=== PATIENT | male | born 1930 | race Caucasian/White ===

== ENCOUNTER 2016-11-12 01:34 | Day surgery (SDC) | payer MEDICARE ==
[~2016-11-12] VITALS: Ht 190.5 cm; Wt 108.9 kg
[~2016-11-12 01:34] MED LIST: BISA-67 PO; CARV12.52 PO; FURO-129 PO; LISI-571 PO; WARF5TAB7 PO
[2016-11-12] MEDS ORDERED: Propofol 10,000 mCg/mL 20 mL Inj ONE (01:35)
[2016-11-12] MEDS ORDERED: Ketamine 10 mg/mL 20 mL Inj ONE (01:35)
[2016-11-12] MEDS ORDERED: Lactated Ringer's 1,000 ML IV ONE (06:00)
[2016-11-12 11:45] VITALS: BP 140/85; PULSE 70; RESP 14; O2SAT 99
--- NOTE | 2016-11-12 12:16 | PCM.HPANE ---
Patient Data Date of Service: November 12, 2016 Surgeon Admitting Provider: Attending Provider:Rohan Russo MD Primary Care Physician:Marisol Millan PA-C Other Provider:Farshad Montelongo Anesthesia Reason for Visit Screening Ht/WT & BMI Height (Feet): 6 Height (Inches): 3 Weight (Kilograms): 108.86 Body Mass Index 29.00 Allergies Coded Allergies: oxycodone (Verified Adverse Reaction, Intermediate, WEIGHT LOSS, 11/11/16) Past Anesthesia History Anesthesia History: Denies:: Abnormal Airway, Anesthesia Reactions, Difficult Intubation, Fam Anesthesia Reaction, Fam Malignant Hypertherm, Malignant Hyperthermia Diabetes History Hx Diabetes?: No MRSA MRSA: No Medications Blood Thinner: Coumadin Last Dose Blood Thinner: Nov 06, 2016 Home Meds Incl Beta Jayant: Yes Date Beta Jayant Taken: November 11, 2016 Time Beta Jayant Taken: 1999 Reported Medications Warfarin Sodium 5 Mg Tablet5 Mg PO DAILY 30 Days Ref 0 11/11/16 Lisinopril 5 Mg Tablet5 Mg PO DAILY #30 TABLET Ref 0 11/11/16 Furosemide (Lasix)20 Mg [id number] Mg PO DAILY 30 Days Ref 0 11/11/16 Bisacodyl (Dulcolax)5 Mg Tablet.dr10 Mg PO DAILY PRN For Constipation Ref 0 11/11/16 Carvedilol 12.5 Mg Igfmek32.5 Mg PO BID Ref 0 11/11/16 History History of ENT Problems?: No HEENT History: Positive for:: Hearing Problem Denies:: Abnormal Airway Difficult Intubation Dysphagia Denture Type: None Teeth Condition: Within Normal Limits Other HEENT Pertinent History: 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 Hx of Heart Problems?: Yes Cardiovascular History: Positive for:: Atrial Fibrillation Hypertension Pacemaker (AICD) Valvular Heart Disease Denies:: AICD Hx of Respiratory Problem?: Yes Respiratory History: Positive for:: Pneumonia Denies:: Asthma COPD Cough Hemoptysis Tuberculosis Hx Neurologic Problems?: No Neurological History: Denies:: CVA Hx of GI Problems?: Yes Hx of Problems?: No Hx Musculoskeletal Problems?: Yes Musculoskeletal History: Positive for:: Joint Replacement (BILAT KNEE) Denies:: Fibromyalgia Psycho Social History: Denies:: Anxiety Hx Depression Hx Surgeries?: Yes (CARDIAC VALVE X2, L TKA X2, R TKA X1, TONSIL, LAP CAMPOS, ABD HERNIA) Hx Any Other Health Problems?: Yes Hx Diabetes: No Hx Alcohol Use: No Stop/Bang Treated for Sleep Apnea?: Yes Do You Have a CPAP Machine?: Yes (NON-COMPLIANT WITH NIGHTLY USE) SHAYY Risk Assessment: High Risk, =/>3 Yes SHAYY Category 4 OutPt Procedure: Yes Risk Assessment Category Category 1A: Patient has history of documented sleep apnea, and HAS NOT received any narcotic, sedative or anesthesia administration during this stay. Category 1B: Patient has history of documented sleep apnea, and HAS received any narcotic , sedative or anesthesia administration during this stay Category 2: Patient has SUSPECTED Obstructive Sleep Apnea, and HAS received any narcotic , sedative or anesthesia administration during this stay. Category 3: Patient has SUSPECTED Obstructive Sleep Apnea and HAS NOT received narcotic, sedative or anesthesia administration during this stay. Category 4: Outpatient in Procedural Areas with known sleep apnea or who screen positive for High Risk via the STOP/BANG questionnaire. Exam Exam Vital Signs Vital Signs Date Time Temp Pulse Resp B/P Pulse Ox O2 Delivery O2 Flow Rate FiO2 11/12/16 11:45 70 14 140/85 99 Room Air General Appearance: Alert, Oriented X3, Cooperative, No Acute Distress HEENT/AIRWAY: MP 1 Lungs: Clear to Auscultation, Normal Air Movement Heart: Exam Unremarkable, Regular Rate/Rhythm, No Murmurs/Rubs/Gallops Plan Impression Patient chart reviewed, patient interviewed and anesthestic plan with risks, benefits, and alternatives discussed, and informed consent obtained. NPO per Anesth. Guidelines: Yes ASA Physical Status: ASA3 Severe Disease Anesthetic Plan: MAC Bene/Risks/Altern/Consents: Yes HP Complete Prior to Induction: Yes Francisco Perry MD November 12, 2016 12:16
[2016-11-12] MEDS ORDERED: Lactated Ringer's 500 ML IV PRN (13:12)
[2016-11-12] MEDS ORDERED: Lactated Ringer's 1,000 ML IV SCH (13:12)
[2016-11-12 13:13] VITALS: BP 116/56; PULSE 68; RESP 16; O2SAT 91
--- NOTE | 2016-11-12 13:13 | PCM.ANEP1 ---
Post Anesthesia Phase 1 PACU Phase 1 Assessment Date of Service: November 12, 2016 Vital Signs 116/56 69 12 98% ra Anesthetic Administered: MAC Level of Alertness: Awake, talking ROJO's with Equal Strength: Yes Pain: No Nausea or Vomiting: No Cardiovascular Function and Hy: Yes Oxygen Delivery: Room Air Lungs: Clear to Auscultation, Normal Air Movement Complications: No Follow up Care: No Patient Instructions Provided: Yes Francisco Perry MD November 12, 2016 13:13
[2016-11-12] MEDS ORDERED: MetoCLOpramide 5 mg/mL 2 mL Inj IVPUSH PRN (13:15)
[2016-11-12] MEDS ORDERED: Ondansetron 2 mg/mL 2 mL Inj IVPUSH PRN (13:15)
[2016-11-12] MEDS ORDERED: Atropine 0.4 mg/mL Inj IVPUSH PRN (13:15)
[2016-11-12 13:23] VITALS: BP 120/69; PULSE 72; RESP 16; O2SAT 99
--- NOTE | 2016-11-12 21:27 | ENDO ---
[address] [address] ENDOSCOPY PROCEDURE PATIENT: LYUDMILA HERRERA : 1930 MR#: [id number] ADMIT: 11/12/2016 JOB ID: [id number] PROCEDURE: Colonoscopy. INDICATIONS: Screening. The patient's ASA classification, Mallampati score, and medications are as per the anesthesia note. INSTRUMENT USED: PCF H 190 L. PREPARATION QUALITY: Fair. PROCEDURE DETAILS: After informed consent was obtained, the patient was brought into the GI suite, where he was placed on oxygen via nasal cannula and monitored with continuous pulse oximeter, telemetry, and blood pressure monitoring. A time-out was performed, then he was placed in a left lateral decubitus position and medications were administered for sedation. Digital rectal exam was performed which was unremarkable. The colonoscope was then inserted into the rectum and advanced under direct visualization to the cecum, which was identified by the presence of the ileocecal valve and appendiceal orifice. Once the cecum was reached, the colonoscope was withdrawn back into the rectum and mucosa and lumen were examined. In the rectum, retroflexion was performed. Following retroflexion, the remaining air in the rectum was suctioned, and the procedure was completed. FINDINGS: 1. 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 2. Otherwise normal exam from rectum to cecum. IMPRESSION: Melanosis coli. RECOMMENDATIONS: Repeat colonoscopy as needed. COMPLICATIONS: None. ESTIMATED BLOOD LOSS: 0.
== END 2016-11-12 23:59 | disposition home or self-care (01) ==
LOC: END 01:34
PROVIDERS: ATTEND Internal Medicine Gastroenterology
DX: Z12.11 Encounter for screening for malignant neoplasm of colon (principal); K63.89 Other specified diseases of intestine; I10 Essential (primary) hypertension; I48.91 Unspecified atrial fibrillation; I38 Endocarditis, valve unspecified; Z95.0 Presence of cardiac pacemaker; Z79.01 Long term (current) use of anticoagulants; Z96.653 Presence of artificial knee joint, bilateral
CPT/HCPCS: G0121; J7120

== ENCOUNTER 2016-12-30 10:10 | Emergency (ER) | payer MEDICARE ==
[~2016-12-30] VITALS: Ht 190.5 cm; Wt 109.1 kg
[2016-12-30 10:22] VITALS: BP 118/63; PULSE 71; RESP 15; O2SAT 96
--- NOTE | 2016-12-30 10:22 | ED.REPORT ---
HPI-Abd Pain M 40 and Over Date of Service Dec 30, 2016 ED Provider: Davis Donato MD 86 y/o male on Coumadin with a hx of A-fib (with pacemaker) and HTN presents to the ED via EMS complaining of hematemesis onset a few hours ago. The pt states he has had a sinus infection for over a month for which he is on antibiotics. He was experiencing severe sinus pain last night so he took 2 Tylenol and his son's "Suboxone". The pt then went to sleep but woke up to nausea, weakness and visual hallucinations. He denies chest pain, cough, diarrhea, melena, hematochezia and abdominal pain. The pt states he felt "kind of woozy and weak" and could not walk so he called the EMS. His sx have resolved in the ED. Nursing Notes Stated Complaint: BLOODY EMESIS Chief Complaint: General Complaint Nursing Notes Reviewed: Yes Allergies: Coded Allergies: oxycodone (Verified Adverse Reaction, Intermediate, WEIGHT LOSS, 11/11/16) Scheduled Carvedilol (Carvedilol) 12.5 Mg Tablet 12.5 MG PO BID Furosemide (Lasix) 20 Mg Tablet 20 MG PO DAILY Lisinopril (Lisinopril) 5 Mg Tablet 5 MG PO DAILY Warfarin Sodium (Warfarin Sodium) 5 Mg Tablet 5 MG PO DAILY Scheduled PRN Bisacodyl (Dulcolax) 5 Mg Tablet.dr 10 MG PO DAILY PRN PRN For Constipation Ondansetron ODT (Zofran ODT) 4 Mg Tablet 4 MG PO Q4H PRN PRN For Nausea General Time Seen by MD: 10:21 Chief Complaint Other (hematemesis) Hx Obtained From: Patient Arrived By: Ambulance Sudden in Onset?: Yes Onset Occurred: 1 - 4 hours ago Symptom Duration: 1 - 4 hours Progression since Onset: Resolved Severity: Current: No pain currently Severity: Maximum: No pain Recent Healthcare: No recent doctor visit Similar Sx Previous: No Past Medical History Past Medical History Valvular heat disease. Reports: Hypertension Reports: Atrial fibrillation Past Surgical History Cardiac valce x2 L TKA x2 R TKA x1 Abd hernia Reports: Cholecystectomy, Tonsillectomy Smoking History Unknown if Ever Smoker Social History Other Social History: Good social support, Ambulatory Status Independent Review of Systems Constitutional: Reports: Weakness - generalized Respiratory: Denies: Non-productive cough Cardiovascular: Denies: Chest pain GI: Reports: Nausea, Vomiting (with blood), Denies: Abdominal pain, Diarrhea, Hematochezia, Melena Complete sys rev & neg: except as marked. Psychiatric: Reports: Hallucinations, visual Physical Exam Initial Vital Signs Vital Signs (First) Date Time Temp Pulse Resp B/P Pulse Ox O2 Delivery O2 Flow Rate FiO2 12/30/16 10:22 36.4 71 15 118/63 96 Room Air Initial VS: Reviewed Neck: Supple, Non-tender, Full range of motion Extremities: Vascular intact, Neuro intact, No swelling, No tenderness Skin: Warm, Dry, No cyanosis Neurologic: Alert, Oriented, Nonfocal General/Constitutional: Awake, Alert, No acute distress, Cooperative Respiratory / Chest: Atraumatic, Breath sounds NL, Breath sounds = bilat, No respiratory distress, No rales, No rhonchi, No wheezing Cardiovascular: Heart rate NL, Regular rhythm, Heart sounds NL, No gallop, No murmurs, No rubs Abdomen: Atraumatic, Soft, Non-tender, No guarding, No rebound Back: Atraumatic, Full range of motion, Painless range of motion, Non-tender Head / Eyes: Atraumatic, Normocephalic No sinus tenderness Rectum / Perineum: Atraumatic, No gross blood Guaiac negative Interpretation & Diagnostics Lab Results Interpretation Result Diagram: 12/30/16 1050 12/30/16 1050 Test 12/30/16 10:50 12/30/16 13:08 White Blood Count 6.0th/mm3 (3.8-10.1) Red Blood Count 4.98mil/mm3 (4.40-5.80) Hemoglobin 14.5g/dL (13.8-17.2) Hematocrit 44.9% (41.0-50.0) Mean Corpuscular Volume 90.2fL (81-100) Mean Corpuscular Hemoglobin 29.1pg (27.0-35.0) Mean Corpuscular Hemoglobin Concent 32.3% (32.0-37.0) Red Cell Distribution Width 14.8% (12.3-15.4) Platelet Count 135bil/L (150-400) Neutrophils (%) (Auto) 81.0% (40-74) Lymphocytes (%) (Auto) 14.2% (14-46) Monocytes (%) (Auto) 3.9% (4-12) Eosinophils (%) (Auto) 0.5% (0-5) Basophils (%) (Auto) 0.2% (0-3) Sodium Level 140mEq/L (134-144) Potassium Level 4.9mEq/L (3.5-5.2) Chloride Level 104mEq/L (97-108) Carbon Dioxide Level 23mmol/L (18-29) Blood Urea Nitrogen 25mg/dL (8-27) Creatinine 0.89mg/dL (0.76-1.27) Estimat Glomerular Filtration Rate 87mL/min (>59) Glucose Level 153mg/dL (60-99) Calcium Level 9.6mg/dL (8.5-10.1) Magnesium Level 1.9mg/dL (1.6-2.6) Total Bilirubin 1.2mg/dL (0.0-1.2) Aspartate Amino Transf (AST/SGOT) 18U/L (0-50) Alanine Aminotransferase (ALT/SGPT) 13U/L (0-44) Alkaline Phosphatase 101U/L (25-160) Total Protein 6.9g/dL (6.4-8.4) Albumin 4.3g/dL (3.4-5.0) Lipase 21U/L (13-60) Hold Culp Top Tube Received (Received) Hold Urine Received (Received) Re-Eval/Medical Decision Med Decision/Clinical Course 86-year-old male presenting not feeling well after taking his Suboxone Last Night. He Reports He Took It for Chronic Headache at 1:00 This Morning. Throughout the night he started developing hallucinations which have resolved. He also reports an episode of vomiting this morning. He reports there is a small amount of blood in there but he has had a sinus infection with intermittent epistaxis for the last couple weeks. His labs are stable. His vital signs are stable. Patient feels back at his baseline. His guaiac is negative. Patient was discharged home in good condition with plans to not take his son Suboxone anymore. He is advised to return if any worsening symptoms including symptoms of GI bleed, fevers, nausea vomiting, abdominal pain, any other new or worsening symptoms. Source of Hx: Old records Time of Eval: 13:32 Patient Status: Condition improved Re-Evaluation/Progress Note: Rechecked pt. Discussed lab results, imaging results, diagnosis and plan to discharge. Pt understands and agrees with the plan. F/U instructions and RTER warning given. All questions addressed. Counseled Regarding: Diagnosis, Lab results, Need for follow-up, When/why to return to ED Discharge & Departure Primary Impression: Medication reaction Additional Impression: Vomiting Disposition: Home Vital Signs - All Vital Signs Date Time Temp Pulse Resp B/P Pulse Ox O2 Delivery O2 Flow Rate FiO2 12/30/16 13:53 75 16 123/73 96 Room Air 12/30/16 11:58 74 14 148/73 96 Room Air 12/30/16 10:22 36.4 71 15 118/63 96 Room Air )( All Prior VS Reviewed: Yes Condition: Stable Additional Instructions: Thank you for entrusting us with your care today. Your lab results are reassuring. Your symptoms seem to be associated with the medication you took last night. Please do not take that medication again. Take Ibuprofen and Naproxen as needed. Take Zofran for nausea as prescribed. Follow up with your Primary Care Provider for further evaluation in 1-3 days Return to the Emergency Department in case of blood in vomit, blood in stool, lightheadedness, dizziness, fever or any new or concerning symptoms. Referrals: Maurice Avendaño PA-C (PCP) Scribe Attestation Portions of this note were transcribed by Sarah Suero. I, , personally performed the history, physical exam and medical decision- making;I reviewed and confirmed the accuracy of the information in the transcribed note. Signed by Kenny Moreno. 12/30/16 13:41 copies to: Maurice Avendaño PA-C, Ben M MD Dec 30, 2016 10:22 Sarah Suero Dec 30, 2016 10:33
[2016-12-30 10:57] LABS: BASOPHILS % (AUTO) 0.2 % (0-3); EOSINOPHILS % (AUTO) 0.5 % (0-5); MONOCYTES % (AUTO) 3.9 % (4-12); Mean Corpuscular Hemoglobin 29.1 pg (27.0-35.0); Mean Corpuscular Volume 90.2 fL (81-100); Platelet Count 135 bil/L (150-400)
[2016-12-30 11:32] LABS: Magnesium 1.9 mg/dL (1.6-2.6)
[2016-12-30 11:58] VITALS: BP 148/73; PULSE 74; RESP 14; O2SAT 96
[2016-12-30] MEDS ORDERED: ONDA4TAB9 PO (13:37)
[2016-12-30 13:53] VITALS: BP 123/73; PULSE 75; RESP 16; O2SAT 96
== END 2016-12-30 13:54 | disposition home or self-care (01) ==
LOC: SED 10:10
DX: R11.10 Vomiting, unspecified (principal); T40.4X5A Adverse effect of other synthetic narcotics, initial encounter; X58.XXXA Exposure to other specified factors, initial encounter; Y93.89 Activity, other specified; Y99.8 Other external cause status; Y92.019 Unspecified place in single-family (private) house as the place of occurrence of the external cause; I10 Essential (primary) hypertension; I48.91 Unspecified atrial fibrillation; Z95.2 Presence of prosthetic heart valve; Z86.79 Personal history of other diseases of the circulatory system; Z90.49 Acquired absence of other specified parts of digestive tract; Z96.653 Presence of artificial knee joint, bilateral; Z87.891 Personal history of nicotine dependence; Z79.01 Long term (current) use of anticoagulants; Z88.5 Allergy status to narcotic agent